=== PATIENT | male | born 1965 | race Caucasian/White ===

== ENCOUNTER 2020-01-27 06:40 | Day surgery (SDC) | payer OTHER ==
[2020-01-27] MEDS ORDERED: Lidocaine 2% 5 ML SDV INJECT ONE (06:41)
[2020-01-27] MEDS ORDERED: Glycopyrrolate 0.2 MG/ML 5 ML MDV IV ONE (06:41)
[2020-01-27] MEDS ORDERED: Propofol 200 MG/20 ML SDV IV ONE (06:41)
[2020-01-27] MEDS ORDERED: Sodium Chloride 0.9% 10 ML Syringe FLUSH PRN (06:45)
[2020-01-27] MEDS ORDERED: Lactated Ringers 1,000 ML IV SCH (06:45)
--- NOTE | 2020-01-27 08:27 | PCM.OPNOTE ---
- General Post-Op/Procedure Note Date of Surgery/Procedure: 01/27/20 Operative Procedure(s): egd with biopsy cold forceps. c scope with cold forceps biopsy Findings: gastritis esophagitis colon polyp ascending and descending colon 5 mm each sigmoid diverticulosis Pre Op Diagnosis: gerd, diarrhea Post-Op Diagnosis: gastritis. esophagitis. colon polyp ascending and descending colon 5 mm each. sigmoid diverticulosis Anesthesia Technique: MAC Primary Surgeon: Guero Segovia Anesthesia Provider: Miguel A Riley Pathology: stomach, esophagus random colon biospies colon polyp x2 Complications: None Condition: Good Free Text/Narrative:: see dictation.[id number]
--- NOTE | 2020-01-27 10:00 | OR ---
DATE OF OPERATION: 01/27/2020 SURGEON: Guero Segovia MD PROCEDURE PERFORMED: EGD and colonoscopy, both cold forceps biopsy. PREOPERATIVE DIAGNOSIS: Diarrhea and history of gastroesophageal reflux disease. POSTOPERATIVE DIAGNOSES: 1. Gastritis, mild distal esophagitis. 2. Colon polyp of the ascending and descending colon. 3. Sigmoid diverticulosis. INDICATIONS FOR PROCEDURE: Mr. Mendoza is a 54-year-old white male, referred with 2 issues; one is a longstanding history of gastroesophageal reflux disease, other is history of diarrhea. He has up to 5 to 6 loose to watery stools a day with no obvious etiology. He was offered and accepted an upper and lower endoscopy. DESCRIPTION OF PROCEDURE: After an excellent IV sedation was administered, the bite block was inserted. The flexible endoscope was passed without difficulty down the patient's esophagus into the stomach. Stomach was insufflated. Scope passed through the pylorus to the second portion of duodenum and slowly withdrawn. The following findings were noted: The duodenum was essentially unremarkable. Stomach demonstrated gastritis involving the entire stomach. [employer]visor biopsies were taken along the greater curve as well as the antrum. The GE junction itself measured 40 cm. Mild erythema was noted in the distal third. Z-line was straight. Circumferential biopsies were taken of this area as well. The remainder of the esophageal exam was unremarkable. The stomach was deflated and the scope was removed. Our attention was then turned to the patient's colon. Digital rectal exam was performed. No marked abnormality was noted. The flexible colonoscope was inserted and advanced to the cecum without difficulty. After identifying the anatomic landmarks, the scope was slowly withdrawn. The following findings were noted. There was a polyp approximately usp up the ascending colon of 5 mm in size, biopsied with cold biopsy forceps and submitted for permanent. Random colon biopsies were also taken of the ascending colon. Transverse colon was unremarkable. Random biopsies were taken. Descending colon, a small 5 mm polyp, again biopsied with cold biopsy forceps and submitted in a single container. Random biopsies were taken. Sigmoid demonstrated occasional diverticula, random biopsies were taken. Rectum was unremarkable and a random biopsy was taken. The colon was deflated as the scope was removed. The patient tolerated the procedure well, was taken to recovery room in good condition. Results will be sent to the patient via letter. /[id number] /MAXIMINO
== END 2020-01-27 09:08 | disposition home or self-care (01) ==
LOC: FB.SDS 06:40
PROVIDERS: ATTEND Surgery
DX: D12.2 Benign neoplasm of ascending colon (principal); K29.70 Gastritis, unspecified, without bleeding; D12.4 Benign neoplasm of descending colon; K57.30 Diverticulosis of large intestine without perforation or abscess without bleeding; K21.00 Gastro-esophageal reflux disease with esophagitis, without bleeding; I10 Essential (primary) hypertension; E66.9 Obesity, unspecified; G47.33 Obstructive sleep apnea (adult) (pediatric); Z79.899 Other long term (current) drug therapy; Z68.36 Body mass index [BMI] 36.0-36.9, adult
CPT/HCPCS: 00813-QZ; 82962; 88305; 88342; J2001; J2704; J3490; J7120